=== PATIENT | female | born 1975 ===

== ENCOUNTER 2018-05-28 08:35 | Outpatient (CLI) | payer OTHER ==
[~2018-05-28] VITALS: Ht 162.6 cm; Wt 68.0 kg
== END 2018-05-28 08:50 | disposition home or self-care (01) ==
LOC: OFIC 805 08:35
DX: R04.0 Epistaxis (principal); D45 Polycythemia vera; D69.3 Immune thrombocytopenic purpura; I10 Essential (primary) hypertension

== ENCOUNTER 2018-06-10 08:41 | Outpatient (CLI) | payer OTHER ==
[~2018-06-10] VITALS: Ht 152.4 cm; Wt 68.0 kg
== END 2018-06-10 09:00 | disposition home or self-care (01) ==
LOC: OFIC 805 08:41
DX: R04.0 Epistaxis (principal); D45 Polycythemia vera; D69.6 Thrombocytopenia, unspecified; I10 Essential (primary) hypertension

== ENCOUNTER 2019-08-18 09:40 | Outpatient (CLI) | payer OTHER | END 2019-08-18 09:44 | disposition home or self-care (01) | LOC: LAB 09:40 | DX: D47.3 Essential (hemorrhagic) thrombocythemia (principal) ==